=== PATIENT | male | born 1995 | race Caucasian/White ===

== ENCOUNTER 2022-01-06 17:37 | Emergency (ER) | payer OTHER ==
[~2022-01-06 17:37] MED LIST: PHENERGAN25 M1 PO; VISTARIL50 MG PO
[2022-01-06 18:24] LABS: BASOPHIL 0.4 % (0-2); EOSINOPHIL 0 % (0-5); HCT 51.6 % (42.0-52.0); HGB 18.2 g/dl (13.2-18.0); LYMPHOCYTE 8.6 % (15-48); MCH 29.4 pg (25.0-31.0); MCHC 35.3 g/dL (32.0-36.0); MCV 83.5 fL (78.0-100.0); MONOCYTE 3.1 % (0-12); MPV 10.2 fL (6.0-9.5); NEUTROPHIL 87.5 % (41-80); NRBC 0; PLT 252 K/uL (150-400); RBC 6.18 M/uL (4.70-6.00); RDW 12.2 % (11.5-14.0); WBC 11.1 K/uL (4.0-10.5)
[2022-01-06 18:41] LABS: BILIRUBIN - TOTAL 1.3 mg/dL (0.2-1.0); BUN/CREAT RATIO (CALC) 15.5 RATIO; CREATININE 0.84 mg/dL (0.67-1.17); GLOBULIN (CALCULATION) 3.7 g/dL; POTASSIUM 3.7 mmol/L (3.5-5.1); TOTAL PROTEIN 8.7 g/dL (6.4-8.2)
[2022-01-06 19:01] LABS: CORONAVIRUS 2019 SARS-COV-2 NEGATIVE (NEGATIVE); INFLUENZA A NAA NEGATIVE (NEGATIVE)
[2022-01-06 21:56] LABS: BILIRUBIN 1+ mg/dL (NEGATIVE); BLOOD NEGATIVE Ery/uL (NEGATIVE); CLARITY CLEAR (CLEAR); COLOR YELLOW (YELLOW); GLUCOSE (U) NORMAL (NORMAL); LEUKOCYTES NEGATIVE Leu/uL (NEGATIVE); NITRITE NEGATIVE (NEGATIVE); PROTEIN 1+ mg/dL (NEGATIVE); SPECIFIC GRAVITY >=1.030 (1.001-1.030); UROBILINOGEN 0.2 mg/dL (0.2-1.0)
[2022-01-06 22:02] LABS: BARBITURATES NEGATIVE (NEGATIVE); ECSTASY (MDMA) NEGATIVE (NEGATIVE); MARIJUANA (THC) POSITIVE (NEGATIVE); METHADONE NEGATIVE (NEGATIVE); OPIATES POSITIVE (NEGATIVE)
[2022-01-06 22:03] LABS: AMPHETAMINES NEGATIVE (NEGATIVE); OXYCODONE NEGATIVE (NEGATIVE)
[2022-01-06 22:06] LABS: BACTERIA TRACE; URINARY RBC RARE; URINARY WBC RARE
[2022-01-06 22:07] LABS: MUCOUS TRACE
[2022-01-06] MEDS ORDERED: ONDANSETRON ODT4 MG PO (23:12)
== END 2022-01-07 00:25 | disposition home or self-care (01) ==
LOC: FER 17:37
PROVIDERS: Physician Assistant
DX: R11.10 Vomiting, unspecified (principal); F11.90 Opioid use, unspecified, uncomplicated; F17.210 Nicotine dependence, cigarettes, uncomplicated; Z20.822 Contact with and (suspected) exposure to COVID-19; Z88.2 Allergy status to sulfonamides
CPT/HCPCS: 36415; 80053; 80305; 81001; 83690; 85025; G0480; J1885; J2405; J2550; J7030; U0002